=== PATIENT | male | born 1975 | race African-American/Black ===

== ENCOUNTER 2017-06-11 08:20 | Emergency (ER) | payer SELFPAY ==
[~2017-06-11] VITALS: Ht 188 cm; Wt 109.0 kg
[2017-06-11] MEDS ORDERED: IBUPROFEN 600MG TABLET PO ONE (09:00)
[2017-06-11 09:52] VITALS: BP 126/83
[2017-06-11] MEDS ORDERED: CYCLOBENZAPRINE 10MG TABLET PO ONE (10:00)
== END 2017-06-11 10:26 | disposition home or self-care (01) ==
LOC: ER 08:34
DX: M25.561 Pain in right knee (principal); I10 Essential (primary) hypertension; E11.9 Type 2 diabetes mellitus without complications
CPT/HCPCS: 73562; 82962; 99284; Z7610